=== PATIENT | female | born 1970 | race African-American/Black ===

== ENCOUNTER 2021-01-13 19:48 | Emergency (ER) | payer BC ==
[~2021-01-13] VITALS: Ht 167.6 cm; Wt 83.0 kg
[2021-01-13 20:33] LABS: ABSOLUTE NEUTROPHILS 8.3 thou/uL (1.4-8.2); BASOPHILS 0.9 % (0.0-2.0); EOSINOPHILS 1.4 % (0.0-3.0); HEMATOCRIT 31.9 % (37.0-47.0); HEMOGLOBIN 10.5 gm/dL (12.0-15.0); LYMPHOCYTES 13.7 % (24.0-44.0); MCH 20.5 pg (26.0-34.0); MCHC 32.8 g/dL (28.0-37.0); MCV 62.6 fL (80.0-100.0); MONOCYTES 6.3 % (1.0-8.0); PLATELET COUNT 383 thou/uL (150-400); POLYS 77.7 % (36.0-66.0); RBC 5.09 mil/uL (4.20-5.00); RDW 15.2 % (10.5-14.5); WBC 10.7 thou/uL (4.0-11.0)
[2021-01-13 20:37] LABS: ANION GAP 14 mmol/L (7-16); BUN 11 mg/dL (7-18); CALCIUM 8.8 mg/dL (8.5-10.1); CHLORIDE 100 mmol/L (98-107); CO2 23 mmol/L (21-32); CREATININE 0.7 mg/dL (0.6-1.0); GLUCOSE 82 mg/dL (74-106); POTASSIUM 3.7 mmol/L (3.5-5.1); SODIUM 137 mmol/L (136-145)
[2021-01-13 20:47] LABS: ALBUMIN 2.9 g/dL (3.4-5.0); DIRECT BILIRUBIN 0.2 mg/dL (<0.1-0.2); LIPASE 41 U/L (73-393); SGOT 18 U/L (15-37); SGPT 14 U/L (14-59); TOTAL BILIRUBIN 0.7 mg/dL (0.2-1.0); TOTAL PROTEIN 7.4 g/dL (6.4-8.2); TROPONIN-I <0.06 ng/mL (<0.06)
[2021-01-13 21:15] LABS: HYPOCHROMASIA 3+; MICROCYTES 3+; POLYCHROMASIA 1+
[2021-01-13 21:19] LABS: URINE BILIRUBIN NEGATIVE (Negative); URINE BLOOD NEGATIVE (Negative); URINE CLARITY CLEAR; URINE COLOR YELLOW; URINE GLUCOSE-RANDOM* NEGATIVE (Negative); URINE KETONES 2+ (Negative); URINE LEUKOCYTES-REFLEX NEGATIVE (Negative); URINE NITRITE-REFLEX NEGATIVE (Negative); URINE PROTEIN (DIPSTICK) TRACE (Negative); URINE SPECIFIC GRAVITY >= 1.030 (1.005-1.035)
[2021-01-13] MEDS ORDERED: ONDANSETRON HCL4 M2 PO (22:43)
[2021-01-13 22:52] VITALS: BP 129/73
--- NOTE | 2021-01-14 07:06 | EKG ---
[place] [address] [facility] [place] [address] ELECTROCARDIOGRAM REPORT Name: GENOVEVA WALKER Room #: DEP [facility] JOSEPHTiaraTiara#: [id number] Admission: 01/13/21 Attend Phys: Discharge: 01/13/21 Date of : 66 Report #: [id number] [facility] ED Test Date: 2021-01-13 Test Time: 20:39:03 Pat Name: GENOVEVA WALKER Department: Room: Gender: F Vc++ Developer: [email or web address] : 1970 Requested By: Nick Rashid Order Number: [id number] MD: Herve Alvarenga Measurements Intervals [place] Rate: 91 P: 36 KS: 170 QRS: -1 QRSD: 97 T: 38 QT: 386 QTc: 475 Interpretive Statements Sinus rhythm RSR' in V1 or V2, right VCD or RVH No previous ECG available for comparison Electronically Signed On 01-14-2021 7:05:46 CDT by Herve Alvarenga [email or web address] <ELECTRONICALLY SIGNED> By: Herve Alvaregna MD, [facility] 01/14/21704 38 2039 Herve Alvarenga MD, FACC /EPI
== END 2021-01-13 22:52 | disposition home or self-care (01) ==
LOC: ER 19:48
PROVIDERS: Nurse Practitioner
DX: R11.0 Nausea (principal); R04.2 Hemoptysis; M79.10 Myalgia, unspecified site; R91.8 Other nonspecific abnormal finding of lung field; N85.8 Other specified noninflammatory disorders of uterus; Z98.51 Tubal ligation status